=== PATIENT | male | born 1970 | race Two or more races ===

== ENCOUNTER 2020-10-18 10:40 | Inpatient (IN) | payer SELFPAY ==
[~2020-10-18] VITALS: Ht 172.7 cm; Wt 78.4 kg
[2020-10-18] MEDS ORDERED: FAMOTIDINE 20 MG/2 ML VIAL IVP ONE (11:15)
[2020-10-18] MEDS ORDERED: IV NORMAL SALINE 1000ML BAG 1,000 ML IV ONE (11:15)
[2020-10-18] MEDS ORDERED: MORPHINE SULFATE 4 MG/ML VIAL. IV/SQ PRN (11:15)
[2020-10-18] MEDS ORDERED: ONDANSETRON PF 4 MG/2 ML VIAL. IVP ONE (11:15)
[2020-10-18 11:42] LABS: BASO # 0.1 x10^3/uL (0.0-0.2); BASO % 0 % (0-3); EOS % 0 % (0-3); HEMOGLOBIN 16.1 g/dL (13.0-17.5); LYMPH # 0.7 x10^3/uL (1.0-4.8); LYMPH % 3 % (24-48); MEAN CORPUSCULAR HEMOGLOBIN 28 pg (25-35); MEAN CORPUSCULAR HGB CONC 34 g/dL (31-37); MEAN CORPUSCULAR VOLUME 83 fL (79-100); MONO # 1.4 x10^3/uL (0.0-1.1); MONO % 6 % (0-9); NEUT # 22.7 x10^3/uL (1.8-7.7); NEUT % 91 % (31-73); PLATELET COUNT 240 x10^3/uL (140-400); RED BLOOD COUNT 5.68 x10^6/uL (4.30-5.70); RED CELL DISTRIBUTION WIDTH 13.7 % (11.5-14.5); WHITE BLOOD COUNT 24.8 x10^3/uL (4.0-11.0)
[2020-10-18 11:55] LABS: CALCIUM 9.1 mg/dL (8.5-10.1); CREATININE 1.6 mg/dL (0.7-1.3); GFR 45.6; POTASSIUM 4.5 mmol/L (3.5-5.1)
[2020-10-18 11:58] LABS: PROTHROMBIN TIME PATIENT 13.8 SEC (11.7-14.0)
--- NOTE | 2020-10-18 11:59 | RAD ---
EXAM: Chest, single view. HISTORY: Cough. COMPARISON: None. FINDINGS: A frontal view of the chest is obtained. There is diffuse central and lower lobe predominan t interstitial infiltrate. There is no consolidation. There are small pleural effusions. There is no pneumothorax. The heart is normal in size. IMPRESSION: Diffuse central and lower lobe predominant interstitial infiltrate and small pleural effu sions. Electronically signed by: Danna Moody MD (10/18/2020 11:56 AM) [id number]
[2020-10-18] MEDS ORDERED: IOHEXOL 300 MG/ML 100ML VIAL. IV ONE (12:00)
[2020-10-18 12:01] LABS: ALBUMIN 3.8 g/dL (3.4-5.0); ALBUMIN/GLOBULIN RATIO 1.1 (1.0-1.7); MAGNESIUM 1.8 mg/dL (1.8-2.4); TOTAL BILIRUBIN 1.3 mg/dL (0.2-1.0); TOTAL PROTEIN 7.4 g/dL (6.4-8.2)
[2020-10-18] MEDS ORDERED: HEPARIN 25,000UTS/250ML PREMIX 250 ML IV PRN (12:15)
[2020-10-18] MEDS ORDERED: HEPARIN for IV BOLUS 10,000 UNIT/10 ML VIAL. IV PRN (12:15)
[2020-10-18 12:27] LABS: % BANDS 2 % (0-9); % LYMPHS 1 % (24-48); % MONOS 5 % (0-10); % SEGS 92 % (35-66)
[2020-10-18 12:28] LABS: PLT ESTIMATE ADEQUATE (ADEQUATE)
[2020-10-18] MEDS ORDERED: HEPARIN for ARTERIAL LINE 1,500 ML ONE (12:29)
[2020-10-18] MEDS ORDERED: LIDOCAINE 1% Multi-Dose 20 ML VIAL. ONE (12:29)
[2020-10-18] MEDS ORDERED: IODIXANOL 320 MG/ML 100 ML VIAL. ONE ×3 (12:29→14:11)
[2020-10-18] MEDS ORDERED: CONTRAST GIVEN. MC PRN ×2 (12:30→16:00)
[2020-10-18] MEDS ORDERED: HEPARIN for IV BOLUS 10,000 UNIT/10 ML VIAL. IV ONE (12:30)
[2020-10-18] MEDS ORDERED: BIVALIRUDIN 250 MG VIAL. IV ONE ×3 (12:32→15:45)
[2020-10-18] MEDS ORDERED: MIDAZOLAM HCL/PF 2 MG/2 ML VIAL. ONE ×2 (12:32→13:28)
[2020-10-18] MEDS ORDERED: fentaNYL PF VIAL 100 MCG/2 ML VIAL ONE (12:32)
[2020-10-18 12:35] VITALS: BP 110/74
--- NOTE | 2020-10-18 12:50 | PHYS DOC ---
Past Medical History Past Medical History: Diabetes-Type II (LINDA POWERS APRN) Past Surgical History: No Surgical History (LINDA POWERS APRN) Smoking Status: Never Smoker Alcohol Use: None (LINDA POWERS APRN) General Adult EDM: Chief Complaint: SHORTNESS OF BREATH HPI: HPI: Patient is a 50 year old male with history of diabetes type 2 who presents to the ED today complaining of moderate left upper quadrant abdominal pain radiating to the chest, symptoms have been going on and off for 3 days. Patient describes the pain as sharp. Patient states the pain became constant yesterday evening hence the reason he came to the ED today. Patient is also complaining of nausea with no vomiting and SOA. Denies any diarrhea. Reports history of alcohol use but not chronically. Denies any fever. Also complaining of productive cough for 3 days. Patient denies anything exacerbating or relieving his symptoms. Patient is Omani-speaking and interpretation is provided by the sister and the daughter. (LINDA POWERS APRN) Review of Systems: Review of Systems: Constitutional: Denies fever or chills. [] Eyes: Denies change in visual acuity. [] HENT: Denies nasal congestion or sore throat. [] Respiratory: Reports shortness of breath. Denies cough Cardiovascular: Reports left sided chest pain GI: Reports left upper quadrant abdominal pain with nausea, denies vomiting, bloody stools or diarrhea. [] : Denies dysuria. [] Musculoskeletal: Denies back pain or joint pain. [] Integument: Denies rash. [] Neurologic: Denies headache, focal weakness or sensory changes. [] Psychiatric: Denies depression or anxiety. [] (LINDA POWERS APRN) Heart Score: HEART Score for Chest Pain: HEART Score for Chest Pain Response (Comments) Value History Moderately Suspicious [address] Depression 2 Age >45 - < 65 1 Risk Factors 1 or 2 Risk Factors 1 Troponin >3 x Normal Limit 2 Total 7 Risk Factors: Risk Factors: DM, Current or recent (<one month) smoker, HTN, HLP, family history of CAD, obesity. Risk Scores: Score 0 - 3: 2.5% MACE over next 6 weeks - Discharge Home Score 4 - 6: 20.3% MACE over next 6 weeks - Admit for Clinical Observation Score 7 - 10: 72.7% MACE over next 6 weeks - Early Invasive Strategies (LINDA POWERS APRN) Current Medications: Current Medications Medications (Trade) Dose Ordered Sig/Sulaiman Start Time Stop Time Status Last Admin Dose Admin Bivalirudin (Angiomax) 250 mg STK-MED ONCE 10/18/20 12:32 10/18/20 12:32 DC Famotidine (Pepcid Vial) 20 mg 1X ONCE 10/18/20 11:15 10/18/20 11:36 DC 10/18/20 11:47 20 MG Fentanyl Citrate (Fentanyl 2ml Vial) 100 mcg STK-MED ONCE 10/18/20 12:32 10/18/20 12:32 DC Heparin Sodium (Porcine) (Heparin Sodium) 4,000 unit 1X ONCE 10/18/20 12:30 10/18/20 12:31 DC 10/18/20 12:28 4,000 UNIT Heparin Sodium/ Dextrose 250 ml @ 9.4 mls/hr CONT PRN 10/18/20 12:15 Heparin Sodium/ Sodium Chloride 1,500 ml @ As Directed STK-MED ONCE 10/18/20 12:29 10/18/20 12:29 DC Info (CONTRAST GIVEN -- Rx MONITORING) 1 each PRN DAILY PRN 10/18/20 12:30 10/20/20 12:29 Iodixanol (Visipaque 320) 100 ml STK-MED ONCE 10/18/20 12:29 10/18/20 12:29 DC Iohexol (Omnipaque 300 Mg/ml) 60 ml 1X ONCE 10/18/20 12:00 10/18/20 12:02 DC Lidocaine HCl (Lidocaine 1% 20ml Vial) 20 ml STK-MED ONCE 10/18/20 12:29 10/18/20 12:29 DC Midazolam HCl (Versed) 2 mg STK-MED ONCE 10/18/20 12:32 10/18/20 12:32 DC Morphine Sulfate (Morphine Sulfate) 4 mg PRN Q15MIN PRN 10/18/20 11:15 10/19/20 11:14 10/18/20 11:47 4 MG Ondansetron HCl (Zofran) 4 mg 1X ONCE 10/18/20 11:15 10/18/20 11:36 DC 10/18/20 11:47 4 MG Sodium Chloride 1,000 ml @ 1,000 mls/hr 1X ONCE 10/18/20 11:15 10/18/20 12:19 DC 10/18/20 11:48 1,000 MLS/HR (LINDA POWERS BARK PEELER) Allergies: Allergies: Allergies Coded Allergies Type Severity Reaction Last Updated Verified No Known Drug Allergies 10/18/20 No (LINDA POWERS BARK PEELER) Physical Exam: PE: Constitutional: Well developed, well nourished, no acute distress, non-toxic appearance. [] HENT: Normocephalic, atraumatic, bilateral external ears normal, oropharynx moist, no oral exudates, nose normal. [] Eyes: PERRLA, EOMI, conjunctiva normal, no discharge. [] Neck: Normal range of motion, no tenderness, supple, no stridor. [] Cardiovascular:Heart rate regular rhythm, no murmur [] Thumping his left chest during exam. restless, continuously lifting LUE arm up in air for comfort. Lungs & Thorax: Short of breath, diminished breath sounds Abdomen: Bowel sounds normal, soft, no tenderness, no masses, no pulsatile masses. [] Skin: Warm, dry, no erythema, no rash. [] Back: No tenderness, no CVA tenderness. [] Extremities: No tenderness, no cyanosis, no clubbing, ROM intact, no edema. [] Neurologic: Alert and oriented X 3, normal motor function, normal sensory function, no focal deficits noted. [] Psychologic: Affect normal, judgement normal, mood normal. [] (PRIYA,LINDA BARK PEELER) Current Patient Data: Labs: Laboratory Tests Test 10/18/20 11:15 White Blood Count 24.8 x10^3/uL (4.0-11.0) H Red Blood Count 5.68 x10^6/uL (4.30-5.70) Hemoglobin 16.1 g/dL (13.0-17.5) Hematocrit 47.0 % (39.0-53.0) Mean Corpuscular Volume 83 fL (79-100) Mean Corpuscular Hemoglobin 28 pg (25-35) Mean Corpuscular Hemoglobin Concent 34 g/dL (31-37) Red Cell Distribution Width 13.7 % (11.5-14.5) Platelet Count 240 x10^3/uL (140-400) Neutrophils (%) (Auto) 91 % (31-73) H Lymphocytes (%) (Auto) 3 % (24-48) L Monocytes (%) (Auto) 6 % (0-9) Eosinophils (%) (Auto) 0 % (0-3) Basophils (%) (Auto) 0 % (0-3) Neutrophils # (Auto) 22.7 x10^3/uL (1.8-7.7) H Lymphocytes # (Auto) 0.7 x10^3/uL (1.0-4.8) L Monocytes # (Auto) 1.4 x10^3/uL (0.0-1.1) H Eosinophils # (Auto) 0.0 x10^3/uL (0.0-0.7) Basophils # (Auto) 0.1 x10^3/uL (0.0-0.2) Segmented Neutrophils % 92 % (35-66) H Band Neutrophils % 2 % (0-9) Lymphocytes % 1 % (24-48) L Monocytes % 5 % (0-10) Platelet Estimate Adequate (ADEQUATE) Prothrombin Time 13.8 SEC (11.7-14.0) Prothrombin Time INR 1.1 (0.8-1.1) Activated Partial Thromboplast Time 29 SEC (24-38) Sodium Level 131 mmol/L (136-145) L Potassium Level 4.5 mmol/L (3.5-5.1) Chloride Level 95 mmol/L (98-107) L Carbon Dioxide Level 23 mmol/L (21-32) Anion Gap 13 (6-14) Blood Urea Nitrogen 21 mg/dL (8-26) Creatinine 1.6 mg/dL (0.7-1.3) H Estimated GFR (Cockcroft-Gault) 45.6 BUN/Creatinine Ratio 13 (6-20) Glucose Level 282 mg/dL (70-99) H Calcium Level 9.1 mg/dL (8.5-10.1) Magnesium Level 1.8 mg/dL (1.8-2.4) Total Bilirubin 1.3 mg/dL (0.2-1.0) H Aspartate Amino Transferase (AST) 165 U/L (15-37) H Alanine Aminotransferase (ALT) 55 U/L (16-63) Alkaline Phosphatase 77 U/L (46-116) Troponin I Quantitative 10.436 ng/mL (0.000-0.055) DB-Ckp-K-Type Natriuretic Peptide 5767 pg/mL (0-124) H Total Protein 7.4 g/dL (6.4-8.2) Albumin 3.8 g/dL (3.4-5.0) Albumin/Globulin Ratio 1.1 (1.0-1.7) Lipase 48 U/L (73-393) L Thyroid Stimulating Hormone (TSH) 1.026 uIU/mL (0.358-3.74) Ethyl Alcohol Level < 10 mg/dL (0-10) Laboratory Tests 10/18/20 11:15 Laboratory Tests 10/18/20 11:15 Vital Signs: Vital Signs Date Time Temp Pulse Resp B/P (MAP) Pulse Ox O2 Delivery O2 Flow Rate FiO2 10/18/20 11:47 20 92 Nasal Cannula 4.0 10/18/20 11:10 98.0 125 139/82 (101) 98.0 (LINDA POWERS APRN) EKG: EK interpreted by Dr. Mei sinus tachycardia, heart rate 118 ST elevation in V4 [address] Mei and Dr. Terrazas Sinus tachycardia HR 115 ST elevation on V4 (LINDA POWERS APRN) Radiology/Procedures: Radiology/Procedures: []PROCEDURE: PORTABLE CHEST 1V EXAM: Chest, single view. HISTORY: Cough. COMPARISON: None. FINDINGS: A frontal view of the chest is obtained. There is diffuse central and lower lobe predominant interstitial infiltrate. There is no consolidation. There are small pleural effusions. There is no pneumothorax. The heart is normal in size. IMPRESSION: Diffuse central and lower lobe predominant interstitial infiltrate and small pleural effusions. Electronically signed by: Danna Ferrera MD (10/18/2020 11:56 AM) [id number] DICTATED and SIGNED BY: DANNA FERRERA MD DATE: 10/18/20 [id number] (LINDA POWERS APRN) Course & Med Decision Making: Course & Med Decision Making Pertinent Labs and Imaging studies reviewed. (See chart for details) This is a 50-year-old male patient presenting to the ED today complaining of left upper quadrant abdominal pain radiating to the chest with nausea and shortness of breath, symptoms for 3 days. Vitals on arrival to the ED O2 sats 85% on room air, patient was put on 4 L of oxygen, O2 sats came up to 92-93%, heart rate 125, respiration 32, blood pressure 139/82. Patient appears uncomfortable thumping his left chest. EKG noted for ST elevation of V4, troponin 10.436 Chest x-ray noted for bilateral lower lobe interstitial infiltrates suspicious for Covid pneumonia. CBC with a WBC of 24.8, CMP with creatinine of 1.[address] Terrazas was notified. He came and took patient to laboratory specialist Spoke with Dr. Reed who accepted patient for admission. Started on Heparin (LINDA POWERS APRN) Dragon Disclaimer: Dragon Disclaimer: This electronic medical record was generated, in whole or in part, using a voice recognition dictation system. (LINDA POWERS APRN) Departure Departure Impression: Primary Impression: STEMI (ST elevation myocardial infarction) Qualified Codes: I21.3 - ST elevation (STEMI) myocardial infarction of unspecified site Additional Impressions: Person under investigation for COVID-19 LUQ abdominal pain Bilateral pulmonary infiltrates on CXR Respiratory failure Qualified Codes: J96.01 - Acute respiratory failure with hypoxia Disposition: ADMITTED INPT THIS HOSP Condition: STABLE Referrals: NO PCP (PCP) Attending Signature Attending Signature I have reviewed the PA/SAFE AND VAULT MECHANIC's note and plan of care. I was available for consultation as needed during the patient's visit in the emergency department. I agree with the clinical impression, plan, and disposition. (MANDO MEI DO) LINDA POWERS APRN Oct 18, 2020 12:50 MANDO MEI DO Oct 18, 2020 14:53
[2020-10-18] MEDS ORDERED: ONDANSETRON PF 4 MG/2 ML VIAL. IV PRN (13:15)
[2020-10-18] MEDS ORDERED: MORPHINE SULFATE 4 MG/ML VIAL. IV PRN (13:15)
[2020-10-18] MEDS ORDERED: FUROSEMIDE 100 MG/10 ML VIAL. ONE (13:16)
[2020-10-18] MEDS ORDERED: NOREPINEPHRINE VIAL 8 MG in IV DEXTROSE 5% 250 ML IV PRN (13:30)
[2020-10-18] MEDS ORDERED: MIDAZOLAM HCL 50 MG in IV NORMAL SALINE 50ML 50 ML IV ONE (13:30)
[2020-10-18] MEDS ORDERED: FUROSEMIDE 100 MG/10 ML VIAL. IVP ONE (13:30)
[2020-10-18] MEDS ORDERED: MIDAZOLAM 100mg/100ml NS BAG 100 ML IV PRN (13:30)
--- NOTE | 2020-10-18 13:44 | PDOC1 ---
History and Physical Date of Admission Date of Admission DATE: 10/18/20 TIME: 13:33 Identification/Chief Complaint Chief Complaint Abdominal pain Source Source: Chart review, Patient History of Present Illness History of Present Illness Patient is a 50-year-old male who presents to the ER with complaints left upper quadrant abdominal pain for the past 2 days. He reports sharp pain, 10/10, with associated nausea, cough, and shortness of breath. Upon arrival in the ER he was saturating 84% on room air, which improved with 4 L nasal cannula. He denies any aggravating or alleviating symptoms. Labs upon admission in the ER showed WBC 24.8, sodium 131, creatinine 1.6, and troponin 10.436. Cardiology was notified and patient was taken emergently to the Vac[facility]. Will admit patient for further medical management. Past Medical History Past Medical History DM2 Past Surgical History Past Surgical History: No pertinent history Family History Family History Unable to obtain at this time due to emergent procedure Social History Smoke: No ALCOHOL: none Drugs: None Current Problem List Problem List Problems Medical Problems: (1) Bilateral pulmonary infiltrates on CXR Status: Acute (2) LUQ abdominal pain Status: Acute (3) Person under investigation for COVID-19 Status: Acute (4) STEMI (ST elevation myocardial infarction) Status: Acute Current Medications Current Medications Current Medications Morphine Sulfate (Morphine Sulfate) 4 mg PRN Q15MIN PRN IV/SQ PAIN GREATER THAN 3/10 Last administered on 10/18/20at 11:47; Start 10/18/20 at 11:15; Stop 10/19/20 at 11:14 Sodium Chloride 1,000 ml @ 1,000 mls/hr 1X ONCE IV Last administered on 10/18/20at 11:48; Start 10/18/20 at 11:15; Stop 10/18/20 at 12:19; Status DC Ondansetron HCl (Zofran) 4 mg 1X ONCE IVP Last administered on 10/18/20at 11:47; Start 10/18/20 at 11:15; Stop 10/18/20 at 11:36; Status DC Famotidine (Pepcid Vial) 20 mg 1X ONCE IVP Last administered on 10/18/20at 11:47; Start 10/18/20 at 11:15; Stop 10/18/20 at 11:36; Status DC Iohexol (Omnipaque 300 Mg/ml) 60 ml 1X ONCE IV ; Start 10/18/20 at 12:00; Stop 10/18/20 at 12:02; Status DC Heparin Sodium/ Dextrose 250 ml @ 9.4 mls/hr CONT PRN IV PER PROTOCOL; Start 10/18/20 at 12:15 Heparin Sodium (Porcine) (Heparin Sodium) 2,150 unit PRN Q6HRS PRN IV FOR UFH LEVEL LESS THAN 0.2; Start 10/18/20 at 12:15 Info (CONTRAST GIVEN -- Rx MONITORING) 1 each PRN DAILY PRN MC SEE COMMENTS; Start 10/18/20 at 12:30; Stop 10/20/20 at 12:29 Heparin Sodium (Porcine) (Heparin Sodium) 4,000 unit 1X ONCE IV Last administered on 10/18/20at 12:28; Start 10/18/20 at 12:30; Stop 10/18/20 at 12:31; Status DC Iodixanol (Visipaque 320) 100 ml STK-MED ONCE .ROUTE ; Start 10/18/20 at 12:29; Stop 10/18/20 at 12:29; Status DC Lidocaine HCl (Lidocaine 1% 20ml Vial) 20 ml STK-MED ONCE .ROUTE ; Start 10/18/20 at 12:29; Stop 10/18/20 at 12:29; Status DC Heparin Sodium/ Sodium Chloride 1,500 ml @ As Directed STK-MED ONCE .ROUTE ; Start 10/18/20 at 12:29; Stop 10/18/20 at 12:29; Status DC Fentanyl Citrate (Fentanyl 2ml Vial) 100 mcg STK-MED ONCE .ROUTE ; Start 10/18/20 at 12:32; Stop 10/18/20 at 12:32; Status DC Midazolam HCl (Versed) 2 mg STK-MED ONCE .ROUTE ; Start 10/18/20 at 12:32; Stop 10/18/20 at 12:32; Status DC Bivalirudin (Angiomax) 250 mg STK-MED ONCE IV ; Start 10/18/20 at 12:32; Stop 10/18/20 at 12:32; Status DC Ondansetron HCl (Zofran) 4 mg PRN Q8HRS PRN IV NAUSEA/VOMITING; Start 10/18/20 at 13:15; Stop 10/19/20 at 13:14 Morphine Sulfate (Morphine Sulfate) 4 mg PRN Q2HR PRN IV PAIN; Start 10/18/20 at 13:15; Stop 10/19/20 at 13:14 Furosemide (Lasix) 100 mg STK-MED ONCE .ROUTE ; Start 10/18/20 at 13:16; Stop 10/18/20 at 13:17; Status DC Norepinephrine Bitartrate 8 mg/ Dextrose 258 ml @ 0 mls/hr CONT PRN IV PER PROTOCOL; Start 10/18/20 at 13:30 Furosemide (Lasix) 100 mg 1X ONCE IVP ; Start 10/18/20 at 13:30; Stop 10/18/20 at 13:31; Status DC Midazolam HCl (Versed) 2 mg STK-MED ONCE .ROUTE ; Start 10/18/20 at 13:28; Stop 10/18/20 at 13:28; Status DC Midazolam HCl 50 mg/Sodium Chloride 50 ml @ 0 mls/hr 1X ONCE IV ; Start 10/18/20 at 13:30; Stop 10/18/20 at 13:31; Status UNV Midazolam HCl 100 ml @ 0 mls/hr CONT PRN IV SEE PROTOCOL; Start 10/18/20 at 13:30 Allergies Allergies: Coded Allergies: No Known Drug Allergies (Unverified , 10/18/20) ROS Review of System GENERAL: No history of weight change, weakness or fevers. SKIN: No bruising, hair changes or rashes. EYES: No blurred, double or loss of vision. NOSE AND THROAT: No history of nosebleeds, hoarseness or sore throat. HEART: Denies chest pain, denies palpitations. LUNGS: Cough, shortness of breath.. GASTROINTESTINAL: Abdominal pain and nausea. GENITOURINARY: Denies dysuria, frequency, urgency, hematuria. NEUROLOGIC: Denies history of numbness, tingling, tremor or weakness. PSYCHIATRIC: Denies anxiety, denies depression. ENDOCRINE: No history of heat or cold intolerance, polyuria or polydipsia. EXTREMITIES: Denies muscle weakness, joint pain, pain on walking or stiffness. Physical Exam Physical Exam General: Alert, Oriented X3, Cooperative, moderate distress HEENT: PERRLA, EOMI Lungs: Clear to auscultation, Normal air movement Heart: Tachycardic, no murmurs Cardiovascular: S1, S2 Abdomen: Normal bowel sounds, Soft, No tenderness Extremities: No clubbing, No cyanosis Skin: No rashes, No significant lesion Neuro: Normal speech, Normal tone, Sensation intact Psych/Mental Status: Mental status NL, Mood NL Vitals Vitals Vital Signs Date Time Temp Pulse Resp B/P (MAP) Pulse Ox O2 Delivery O2 Flow Rate FiO2 10/18/20 12:35 116 110/74 (86) 89 Nasal Cannula 6.0 10/18/20 11:47 20 10/18/20 11:10 98.0 98.0 Labs Labs Laboratory Tests Test 10/18/20 11:15 10/18/20 12:13 White Blood Count 24.8 x10^3/uL (4.0-11.0) Red Blood Count 5.68 x10^6/uL (4.30-5.70) Hemoglobin 16.1 g/dL (13.0-17.5) Hematocrit 47.0 % (39.0-53.0) Mean Corpuscular Volume 83 fL (79-100) Mean Corpuscular Hemoglobin 28 pg (25-35) Mean Corpuscular Hemoglobin Concent 34 g/dL (31-37) Red Cell Distribution Width 13.7 % (11.5-14.5) Platelet Count 240 x10^3/uL (140-400) Neutrophils (%) (Auto) 91 % (31-73) Lymphocytes (%) (Auto) 3 % (24-48) Monocytes (%) (Auto) 6 % (0-9) Eosinophils (%) (Auto) 0 % (0-3) Basophils (%) (Auto) 0 % (0-3) Neutrophils # (Auto) 22.7 x10^3/uL (1.8-7.7) Lymphocytes # (Auto) 0.7 x10^3/uL (1.0-4.8) Monocytes # (Auto) 1.4 x10^3/uL (0.0-1.1) Eosinophils # (Auto) 0.0 x10^3/uL (0.0-0.7) Basophils # (Auto) 0.1 x10^3/uL (0.0-0.2) Segmented Neutrophils % 92 % (35-66) Band Neutrophils % 2 % (0-9) Lymphocytes % 1 % (24-48) Monocytes % 5 % (0-10) Platelet Estimate Adequate (ADEQUATE) Prothrombin Time 13.8 SEC (11.7-14.0) Prothromb Time International Ratio 1.1 (0.8-1.1) Activated Partial Thromboplast Time 29 SEC (24-38) Sodium Level 131 mmol/L (136-145) Potassium Level 4.5 mmol/L (3.5-5.1) Chloride Level 95 mmol/L (98-107) Carbon Dioxide Level 23 mmol/L (21-32) Anion Gap 13 (6-14) Blood Urea Nitrogen 21 mg/dL (8-26) Creatinine 1.6 mg/dL (0.7-1.3) Estimated GFR (Cockcroft-Gault) 45.6 BUN/Creatinine Ratio 13 (6-20) Glucose Level 282 mg/dL (70-99) Calcium Level 9.1 mg/dL (8.5-10.1) Magnesium Level 1.8 mg/dL (1.8-2.4) Total Bilirubin 1.3 mg/dL (0.2-1.0) Aspartate Amino Transf (AST/SGOT) 165 U/L (15-37) Alanine Aminotransferase (ALT/SGPT) 55 U/L (16-63) Alkaline Phosphatase 77 U/L (46-116) Troponin I Quantitative 10.436 ng/mL (0.000-0.055) OI-Nsp-K-Type Natriuretic Peptide 5767 pg/mL (0-124) Total Protein 7.4 g/dL (6.4-8.2) Albumin 3.8 g/dL (3.4-5.0) Albumin/Globulin Ratio 1.1 (1.0-1.7) Lipase 48 U/L (73-393) Thyroid Stimulating Hormone (TSH) 1.026 uIU/mL (0.358-3.74) Ethyl Alcohol Level < 10 mg/dL (0-10) SARS-CoV-2 Antigen (Rapid) Negative (NEGATIVE) Laboratory Tests Test 10/18/20 11:15 10/18/20 12:13 White Blood Count 24.8 x10^3/uL (4.0-11.0) Red Blood Count 5.68 x10^6/uL (4.30-5.70) Hemoglobin 16.1 g/dL (13.0-17.5) Hematocrit 47.0 % (39.0-53.0) Mean Corpuscular Volume 83 fL (79-100) Mean Corpuscular Hemoglobin 28 pg (25-35) Mean Corpuscular Hemoglobin Concent 34 g/dL (31-37) Red Cell Distribution Width 13.7 % (11.5-14.5) Platelet Count 240 x10^3/uL (140-400) Neutrophils (%) (Auto) 91 % (31-73) Lymphocytes (%) (Auto) 3 % (24-48) Monocytes (%) (Auto) 6 % (0-9) Eosinophils (%) (Auto) 0 % (0-3) Basophils (%) (Auto) 0 % (0-3) Neutrophils # (Auto) 22.7 x10^3/uL (1.8-7.7) Lymphocytes # (Auto) 0.7 x10^3/uL (1.0-4.8) Monocytes # (Auto) 1.4 x10^3/uL (0.0-1.1) Eosinophils # (Auto) 0.0 x10^3/uL (0.0-0.7) Basophils # (Auto) 0.1 x10^3/uL (0.0-0.2) Segmented Neutrophils % 92 % (35-66) Band Neutrophils % 2 % (0-9) Lymphocytes % 1 % (24-48) Monocytes % 5 % (0-10) Platelet Estimate Adequate (ADEQUATE) Prothrombin Time 13.8 SEC (11.7-14.0) Prothromb Time International Ratio 1.1 (0.8-1.1) Activated Partial Thromboplast Time 29 SEC (24-38) Sodium Level 131 mmol/L (136-145) Potassium Level 4.5 mmol/L (3.5-5.1) Chloride Level 95 mmol/L (98-107) Carbon Dioxide Level 23 mmol/L (21-32) Anion Gap 13 (6-14) Blood Urea Nitrogen 21 mg/dL (8-26) Creatinine 1.6 mg/dL (0.7-1.3) Estimated GFR (Cockcroft-Gault) 45.6 BUN/Creatinine Ratio 13 (6-20) Glucose Level 282 mg/dL (70-99) Calcium Level 9.1 mg/dL (8.5-10.1) Magnesium Level 1.8 mg/dL (1.8-2.4) Total Bilirubin 1.3 mg/dL (0.2-1.0) Aspartate Amino Transf (AST/SGOT) 165 U/L (15-37) Alanine Aminotransferase (ALT/SGPT) 55 U/L (16-63) Alkaline Phosphatase 77 U/L (46-116) Troponin I Quantitative 10.436 ng/mL (0.000-0.055) DS-Nws-A-Type Natriuretic Peptide 5767 pg/mL (0-124) Total Protein 7.4 g/dL (6.4-8.2) Albumin 3.8 g/dL (3.4-5.0) Albumin/Globulin Ratio 1.1 (1.0-1.7) Lipase 48 U/L (73-393) Thyroid Stimulating Hormone (TSH) 1.026 uIU/mL (0.358-3.74) Ethyl Alcohol Level < 10 mg/dL (0-10) SARS-CoV-2 Antigen (Rapid) Negative (NEGATIVE) Images Images EXAM: Chest, single view. HISTORY: Cough. COMPARISON: None. FINDINGS: A frontal view of the chest is obtained. There is diffuse central and lower lobe predominant interstitial infiltrate. There is no consolidation. There are small pleural effusions. There is no pneumothorax. The heart is normal in size. IMPRESSION: Diffuse central and lower lobe predominant interstitial infiltrate and small pleural effusions. 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 Rapid COVID-19 was negative. Chest x-ray showing lower lobe predominant interstitial infiltrates, concerning for pneumonia. Will cover for community-acquired pneumonia with Rocephin and doxycycline COVID-19 PCR pending; will initiate steroids and possibly remdesivir if COVID-19 positive IV normal saline FEN - Cardiac diet PPX - Heparin FULL CODE Dispo - inpatient for above Justifications for Admission Other Justification JOHNNIE UNGER MD Oct 18, 2020 13:44
[2020-10-18] MEDS ORDERED: cefTRIAXone IV Push 1 GM VIAL. IVP SCH (14:00)
[2020-10-18] MEDS ORDERED: MAGNESIUM HYDROXIDE 2,400 MG/30 ML ORAL.SUSP. PO PRN (14:00)
[2020-10-18] MEDS ORDERED: MAG HYDROX/ALUMINUM HYD/SIMETH 30 ML ORAL.SUSP PO PRN (14:00)
[2020-10-18] MEDS ORDERED: ACETAMINOPHEN 325 MG TABLET. PO PRN (14:00)
[2020-10-18] MEDS ORDERED: DEXTROSE 50% 25 GM / 50ML DISP.SYRIN. IV PRN (14:00)
[2020-10-18] MEDS ORDERED: ZOLPIDEM 5 MG TABLET. PO PRN (14:00)
[2020-10-18] MEDS ORDERED: BISACODYL 10 MG SUPP.RECT. PR PRN (14:00)
[2020-10-18] MEDS ORDERED: ONDANSETRON PF 4 MG/2 ML VIAL. IVP PRN (14:00)
[2020-10-18] MEDS ORDERED: MORPHINE SULFATE 2 MG/ML VIAL. IV PRN (14:00)
[2020-10-18] MEDS ORDERED: DOXYCYCLINE HYCLATE 100 MG TABLET PO SCH (14:00)
[2020-10-18] MEDS ORDERED: CALCIUM CARBONATE 500 MG TAB.CHEW PO PRN (14:00)
[2020-10-18] MEDS ORDERED: HEPARIN for SUB-Q USE 5,000 UNIT/ML VIAL. SQ SCH (14:00)
[2020-10-18] MEDS ORDERED: CALCIUM CHLORIDE 1,000 MG/10 ML DISP.SYRIN ONE (14:41)
[2020-10-18] MEDS ORDERED: EPINEPHrine SYRINGE 1 MG/10 ML SYRINGE ONE (14:41)
[2020-10-18] MEDS ORDERED: ATROPINE 0.5 MG/5 ML DISP.SYRINGE. ONE (14:41)
[2020-10-18] MEDS ORDERED: SUCCINYLCHOLINE 200 MG/10 ML VIAL. ONE (15:00)
[2020-10-18] MEDS ORDERED: ETOMIDATE 20 MG/10 ML VIAL. IV ONE (15:00)
--- NOTE | 2020-10-18 15:42 | NUR ---
Patient transported to [facility]ification [facility] from ED. On 6L NC, alert. Polish speaking. SR, VS stable. Complaints of chest pain. Upon positioning patient on table, using wedge and pillow behind him, patient became increasingly anxious. 15L NRB applied, no improvement. SpO2 <90%. Increased anxiety and amount of sputum, coughing at this time. Patient would not remain still on table. Anesthesia and RT called. Patient intubated by Dr. Wilcox. Sedated w/ Versed gtt and ventilator applied. ACC 22, 500, 8, 100%. Patient suctioned multiple times. Red, frothy sputum present. Peak pressures >35 on ventilator. At this time, Levophed and Dopamine gtt's started per MD order. See [facility] for rates/doses. Dr. Terrazas able to place one coronary stent. Patient then coded. CPR initiated. Code Blue called overhead. See Code Blue Sheet. Patient pronounced at 1508. Family notified. Taken to ICU. See [facility] documentation.
[2020-10-18] MEDS ORDERED: fentaNYL PF VIAL 100 MCG/2 ML VIAL IV ONE (15:45)
[2020-10-18] MEDS ORDERED: FUROSEMIDE 40 MG/4 ML VIAL. IVP ONE (15:45)
[2020-10-18] MEDS ORDERED: IODIXANOL 320 MG/ML 100 ML VIAL. IART ONE (15:45)
[2020-10-18] MEDS ORDERED: MIDAZOLAM HCL/PF 2 MG/2 ML VIAL. IV ONE (15:45)
[2020-10-18] MEDS ORDERED: LIDOCAINE 1% Multi-Dose 20 ML VIAL. INJ ONE (15:45)
[2020-10-18] MEDS ORDERED: INSULIN LISPRO 300 UNITS/3 ML VIAL. SQ SCH (17:00)
--- NOTE | 2020-10-18 17:02 | PDOC3 ---
Discharge Summary Visit Information Date of Admission: Oct 17, 2020 Date of Discharge: Oct 18, 2020 Final Diagnosis Problems Medical Problems: (1) Bilateral pulmonary infiltrates on CXR Status: Acute (2) LUQ abdominal pain Status: Acute (3) Person under investigation for COVID-19 Status: Acute (4) Respiratory failure Status: Acute (5) STEMI (ST elevation myocardial infarction) Status: Acute Brief Hospital Course Allergies Allergies Coded Allergies Type Severity Reaction Last Updated Verified No Known Drug Allergies 10/18/20 No Vital Signs Vital Signs Date Time Temp Pulse Resp B/P (MAP) Pulse Ox O2 Delivery O2 Flow Rate FiO2 10/18/20 13:18 Ventilator 10/18/20 13:15 88 10/18/20 12:35 116 110/74 (86) 6.0 10/18/20 11:47 20 10/18/20 11:10 98.0 98.0 Lab Results Laboratory Tests Test 10/18/20 11:15 10/18/20 12:13 White Blood Count 24.8 x10^3/uL (4.0-11.0) Red Blood Count 5.68 x10^6/uL (4.30-5.70) Hemoglobin 16.1 g/dL (13.0-17.5) Hematocrit 47.0 % (39.0-53.0) Mean Corpuscular Volume 83 fL (79-100) Mean Corpuscular Hemoglobin 28 pg (25-35) Mean Corpuscular Hemoglobin Concent 34 g/dL (31-37) Red Cell Distribution Width 13.7 % (11.5-14.5) Platelet Count 240 x10^3/uL (140-400) Neutrophils (%) (Auto) 91 % (31-73) Lymphocytes (%) (Auto) 3 % (24-48) Monocytes (%) (Auto) 6 % (0-9) Eosinophils (%) (Auto) 0 % (0-3) Basophils (%) (Auto) 0 % (0-3) Neutrophils # (Auto) 22.7 x10^3/uL (1.8-7.7) Lymphocytes # (Auto) 0.7 x10^3/uL (1.0-4.8) Monocytes # (Auto) 1.4 x10^3/uL (0.0-1.1) Eosinophils # (Auto) 0.0 x10^3/uL (0.0-0.7) Basophils # (Auto) 0.1 x10^3/uL (0.0-0.2) Segmented Neutrophils % 92 % (35-66) Band Neutrophils % 2 % (0-9) Lymphocytes % 1 % (24-48) Monocytes % 5 % (0-10) Platelet Estimate Adequate (ADEQUATE) Prothrombin Time 13.8 SEC (11.7-14.0) Prothromb Time International Ratio 1.1 (0.8-1.1) Activated Partial Thromboplast Time 29 SEC (24-38) Sodium Level 131 mmol/L (136-145) Potassium Level 4.5 mmol/L (3.5-5.1) Chloride Level 95 mmol/L (98-107) Carbon Dioxide Level 23 mmol/L (21-32) Anion Gap 13 (6-14) Blood Urea Nitrogen 21 mg/dL (8-26) Creatinine 1.6 mg/dL (0.7-1.3) Estimated GFR (Cockcroft-Gault) 45.6 BUN/Creatinine Ratio 13 (6-20) Glucose Level 282 mg/dL (70-99) Calcium Level 9.1 mg/dL (8.5-10.1) Magnesium Level 1.8 mg/dL (1.8-2.4) Total Bilirubin 1.3 mg/dL (0.2-1.0) Aspartate Amino Transf (AST/SGOT) 165 U/L (15-37) Alanine Aminotransferase (ALT/SGPT) 55 U/L (16-63) Alkaline Phosphatase 77 U/L (46-116) Troponin I Quantitative 10.436 ng/mL (0.000-0.055) CJ-Ibf-T-Type Natriuretic Peptide 5767 pg/mL (0-124) Total Protein 7.4 g/dL (6.4-8.2) Albumin 3.8 g/dL (3.4-5.0) Albumin/Globulin Ratio 1.1 (1.0-1.7) Lipase 48 U/L (73-393) Thyroid Stimulating Hormone (TSH) 1.026 uIU/mL (0.358-3.74) Ethyl Alcohol Level < 10 mg/dL (0-10) SARS-CoV-2 Antigen (Rapid) Negative (NEGATIVE) Laboratory Tests Test 10/18/20 11:15 10/18/20 12:13 White Blood Count 24.8 x10^3/uL (4.0-11.0) Red Blood Count 5.68 x10^6/uL (4.30-5.70) Hemoglobin 16.1 g/dL (13.0-17.5) Hematocrit 47.0 % (39.0-53.0) Mean Corpuscular Volume 83 fL (79-100) Mean Corpuscular Hemoglobin 28 pg (25-35) Mean Corpuscular Hemoglobin Concent 34 g/dL (31-37) Red Cell Distribution Width 13.7 % (11.5-14.5) Platelet Count 240 x10^3/uL (140-400) Neutrophils (%) (Auto) 91 % (31-73) Lymphocytes (%) (Auto) 3 % (24-48) Monocytes (%) (Auto) 6 % (0-9) Eosinophils (%) (Auto) 0 % (0-3) Basophils (%) (Auto) 0 % (0-3) Neutrophils # (Auto) 22.7 x10^3/uL (1.8-7.7) Lymphocytes # (Auto) 0.7 x10^3/uL (1.0-4.8) Monocytes # (Auto) 1.4 x10^3/uL (0.0-1.1) Eosinophils # (Auto) 0.0 x10^3/uL (0.0-0.7) Basophils # (Auto) 0.1 x10^3/uL (0.0-0.2) Segmented Neutrophils % 92 % (35-66) Band Neutrophils % 2 % (0-9) Lymphocytes % 1 % (24-48) Monocytes % 5 % (0-10) Platelet Estimate Adequate (ADEQUATE) Prothrombin Time 13.8 SEC (11.7-14.0) Prothromb Time International Ratio 1.1 (0.8-1.1) Activated Partial Thromboplast Time 29 SEC (24-38) Sodium Level 131 mmol/L (136-145) Potassium Level 4.5 mmol/L (3.5-5.1) Chloride Level 95 mmol/L (98-107) Carbon Dioxide Level 23 mmol/L (21-32) Anion Gap 13 (6-14) Blood Urea Nitrogen 21 mg/dL (8-26) Creatinine 1.6 mg/dL (0.7-1.3) Estimated GFR (Cockcroft-Gault) 45.6 BUN/Creatinine Ratio 13 (6-20) Glucose Level 282 mg/dL (70-99) Calcium Level 9.1 mg/dL (8.5-10.1) Magnesium Level 1.8 mg/dL (1.8-2.4) Total Bilirubin 1.3 mg/dL (0.2-1.0) Aspartate Amino Transf (AST/SGOT) 165 U/L (15-37) Alanine Aminotransferase (ALT/SGPT) 55 U/L (16-63) Alkaline Phosphatase 77 U/L (46-116) Troponin I Quantitative 10.436 ng/mL (0.000-0.055) UO-Hvd-Q-Type Natriuretic Peptide 5767 pg/mL (0-124) Total Protein 7.4 g/dL (6.4-8.2) Albumin 3.8 g/dL (3.4-5.0) Albumin/Globulin Ratio 1.1 (1.0-1.7) Lipase 48 U/L (73-393) Thyroid Stimulating Hormone (TSH) 1.026 uIU/mL (0.358-3.74) Ethyl Alcohol Level < 10 mg/dL (0-10) SARS-CoV-2 Antigen (Rapid) Negative (NEGATIVE) Brief Hospital Course Mr. Shannon is a 50 old male who presented with STEMI. He was taken to the [facility] emergently, but unfortunately patient coded in the [facility]. He was intubated and admitted to the ICU. However patient shortly after being admitted to ICU. Discharge Information Condition at Discharge: / Disposition/Orders: Justicifation of Admission Dx: Justifications for Admission: Justification of Admission Dx: Yes IA: Acute STEMI JOHNNIE UNGER MD Oct 18, 2020 17:02
--- NOTE | 2020-10-18 17:29 | EKG ---
[facility] [address] [place] [address] Test Date: 2020-10-18 Test Time: 11:15:08 Pat Name: TATE PATHAK Department: Room: Gender: M Hearing Care Practitioner: : 1970 Requested By: LINDA POWERS Order Number: [id number] Reading MD: Measurements Intervals [place] Rate: 118 P: 26 RI: 150 QRS: 33 QRSD: 84 T: 116 QT: 288 QTc: 406 Interpretive Statements SINUS TACHYCARDIA QRS(T) CONTOUR ABNORMALITY CONSIDER ANTEROSEPTAL MYOCARDIAL DAMAGE ST & T ABNORMALITY, CONSIDER RECENT ANTERIOR MYOCARDIAL OR PERICARDIAL DAMAGE ABNORMAL ECG RI6.01 No previous ECG available for comparison
--- NOTE | 2020-10-18 18:25 | NUR ---
patient brought to ICU for family viewing past dying at 1508 in [facility],Father came and was at bedside with family, Dr. Greer called did not want autopsy,family declined autopsy. patient from [place] need to make arrangement ,will call for home. will send patient to [facility] when family done.
--- NOTE | 2020-10-18 19:37 | CARD ---
MR#: [id number] Date of Study: 10/18/2020 Ordering Physician: VERONA GREER, Referring Physician: VERONA GREER, Tech: Jerome Malloy, RT (R) APPROVED REPORT Procedures Selective coronary angiogram Bare-metal stent placement to the LAD Intubation of the patient prior to the procedure The patient was a 50-year-old male who presented to the emergency room with episodes of lower chest a nd upper epigastric discomfort. The patient spoke Khmer but an ethnoarchaeology professor was present. He had an episode of peak chest pain approximately 14 hours prior to arrival in the emergency room. His EKG s howed anterior ST elevation. His troponin was increased to approximately 10. In this setting we rec ommended an emergency heart catheterization. Risks and benefits were discussed. The patient gave in formed consent to proceed. The patient was brought emergently to the cardiac catheterization lab. Once on the catheterization t able the patient became severely short of breath. This progressed to the point that we required an e mergency intubation performed by the anesthesiology service. This was performed without complication s the patient was placed on a ventilator. Of note the patient had copious secretions and fluid in hi s ET tube and needed almost constant suctioning. Following this the area the right femoral vein and artery prepared in the usual manner with Betadine, sterile draping and local anesthetic. An 18-gauge needle was used to enter the right femoral artery, a wire placed and a 6 [place] sheath placed over t he wire. The same needle was then used to engage the right femoral vein, a wire placed and a 5 Frenc h sheath placed into the right femoral vein. This was secured and attached to an IV fluid drip. A W ElationEMR right 6 [place] diagnostic catheter was advanced to the ascending aorta over a J-wire. It was used to engage the right coronary artery and sequential injections in various views were obtained. In the same manner a 6 [place] XB 3.5 left guide was used to engage the left system and sequential inj ections of various views were obtained. Upon reviewing the images the patient had diffuse three-vess el coronary artery disease. The right coronary artery was a moderately small vessel with a subtotal mid occlusion with mild collateralization of the left system. The left circumflex had a subtotal les ion in a moderate size obtuse marginal vessel with diffuse small vessel disease. The LAD had diffuse mid disease in the greater than 95% range. After reviewing the images we proceeded to intervene on the LAD system. Angiomax as per protocol was administered. A PT choice wire was used to cross the lesion. The wire first tracted into a diagonal branch but then was repositioned into the distal LAD. Initially a 2.5 x 16 balloon was used for 4 inflations in the mid region with a maximum pressure of 8 emile and a maxim um time of 20 seconds. Following this a 2.5 x 18 bare-metal stent was placed in the mid to distal le adam with the anticipation to place a mildly larger overlapping stent in the more proximal area of th e vessel. The stent was deployed with 1 inflation at 15 emile for 15 seconds. As the stent balloon wa s being removed in the Guide to prepared to place a second stent, the patient began to desaturate and then drop his blood pressure. He then went into a cardiac arrest. CPR was immediately started. [facility] protocols were followed. The patient required continuing and increasing suctioning through his ET tube with a total suction volume of greater than 700 mils. At approximately 20 minutes into his co de he regained a sinus rhythm for approximately 3 minutes. We then were preparing to reimage his ves sels and possibly place a second stent. However within 3 minutes he resumed pulseless electrical act ivity and CPR was resumed. Also at approximately 15 minutes into his code he had an episode of VT wh ich was successfully treated with a cardioversion. The patient's [facility] starting with the emergency intubation and throughout the course of the case she was informed of the situation. At approximately 25 minutes into CPR I broke scrub and went to the waiting area to discuss it with the patient's sister before I returned to the lab. We continued CPR for a total of >35 minutes. We were not able to regain a pulse or blood pressure. The patient's pupils were fixed and dilated. I halted resuscitation efforts. Following this I went to the waiting area discuss it w ith the patient's family. Coronaries Left main. Left main was a moderate size vessel with no significant lesions. Left anterior descending. The LAD was a moderate size vessel. It had diffuse mid disease in the gre ater than 95% range. It had diffuse disease throughout the distal vessels. Left circumflex. The left circumflex was a moderate size vessel. It had a subtotal occlusion of a m oderate size OM branch. It also had diffuse small vessel disease. Right coronary artery. The right coronary was a moderately small vessel. It has subtotal mid occlus ion. It had diffuse small vessel disease. There was mild collateralization from the left system. <Conclusion> Late presentation of a myocardial infarction approximately 14 hours post most severe chest pain. Emergency intubation secondary to acute respiratory failure thought to be secondary to heart failure when brought to the heart catheterization lab. Three-vessel coronary disease as noted above. Balloon and stent placement to the mid LAD lesion of greater than 95%. Cardiac arrest. Prolonged CPR as above. [place] time. 13.4 min. Dose. 66 Gymc2 Contrast. 299 Visi Moderate sedation. 114 min. Signed by : Verona Greer MD Electronically Approved : 10/18/2020 19:36:50
--- NOTE | 2020-10-18 19:53 | PDOC2 ---
CONSULT Date of Consult Date of Consult DATE: 10/18/20 TIME: 19:46 Reason for Consult Reason for Consult: Myocardial infarction Referring Physician Referring Physician: Dr. Reed Identification/Chief Complaint Chief Complaint Upper abdominal and chest pain. Source Source: Chart review, Patient History of Present Illness Reason for Visit: The patient is a pleasant 50-year-old male visiting from [place] who has developed episodes of upper abdominal and lower chest pain over the past 3 days. 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 His most severe pain was last night approximately 10 PM. He came to the emergency room for persistent pain as noted above. He has a history of diabetes mellitus. There is no reported history of coronary disease congestive heart failure or cardiac arrhythmias. The patient is a non-smoker. Initial chest x-ray showed diffuse central and lower lobe infiltrates and small pleural effusions. His EKG showed ST elevation in the anterior leads although no reciprocal depression. Troponin was elevated at 10.4 creatinine of 1.6 and WBCs at 24.8. Past Medical History Endocrine: Diabetes Past Surgical History Past Surgical History: No pertinent history Family History Family History: Diabetes Social History No ALCOHOL: none Drugs: None Current Problem List Problem List Problems Medical Problems: (1) Bilateral pulmonary infiltrates on CXR Status: Acute (2) LUQ abdominal pain Status: Acute (3) Person under investigation for COVID-19 Status: Acute (4) Respiratory failure Status: Acute (5) STEMI (ST elevation myocardial infarction) Status: Acute Current Medications Current Medications Current Medications Morphine Sulfate (Morphine Sulfate) 4 mg PRN Q15MIN PRN IV/SQ PAIN GREATER THAN 3/10 Last administered on 10/18/20at 11:47; Start 10/18/20 at 11:15; Stop 10/19/20 at 11:14 Sodium Chloride 1,000 ml @ 1,000 mls/hr 1X ONCE IV Last administered on 10/18/20at 11:48; Start 10/18/20 at 11:15; Stop 10/18/20 at 12:19; Status DC Ondansetron HCl (Zofran) 4 mg 1X ONCE IVP Last administered on 10/18/20at 11:47; Start 10/18/20 at 11:15; Stop 10/18/20 at 11:36; Status DC Famotidine (Pepcid Vial) 20 mg 1X ONCE IVP Last administered on 10/18/20at 11:47; Start 10/18/20 at 11:15; Stop 10/18/20 at 11:36; Status DC Iohexol (Omnipaque 300 Mg/ml) 60 ml 1X ONCE IV ; Start 10/18/20 at 12:00; Stop 10/18/20 at 12:02; Status DC Heparin Sodium/ Dextrose 250 ml @ 9.4 mls/hr CONT PRN IV PER PROTOCOL; Start 10/18/20 at 12:15 Heparin Sodium (Porcine) (Heparin Sodium) 2,150 unit PRN Q6HRS PRN IV FOR UFH LEVEL LESS THAN 0.2; Start 10/18/20 at 12:15 Info (CONTRAST GIVEN -- Rx MONITORING) 1 each PRN DAILY PRN MC SEE COMMENTS; Start 10/18/20 at 12:30; Stop 10/20/20 at 12:29 Heparin Sodium (Porcine) (Heparin Sodium) 4,000 unit 1X ONCE IV Last administered on 10/18/20at 12:28; Start 10/18/20 at 12:30; Stop 10/18/20 at 12:31; Status DC Iodixanol (Visipaque 320) 100 ml STK-MED ONCE .ROUTE ; Start 10/18/20 at 12:29; Stop 10/18/20 at 12:29; Status DC Lidocaine HCl (Lidocaine 1% 20ml Vial) 20 ml STK-MED ONCE .ROUTE ; Start 10/18/20 at 12:29; Stop 10/18/20 at 12:29; Status DC Heparin Sodium/ Sodium Chloride 1,500 ml @ As Directed STK-MED ONCE .ROUTE ; Start 10/18/20 at 12:29; Stop 10/18/20 at 12:29; Status DC Fentanyl Citrate (Fentanyl 2ml Vial) 100 mcg STK-MED ONCE .ROUTE ; Start 10/18/20 at 12:32; Stop 10/18/20 at 12:32; Status DC Midazolam HCl (Versed) 2 mg STK-MED ONCE .ROUTE ; Start 10/18/20 at 12:32; Stop 10/18/20 at 12:32; Status DC Bivalirudin (Angiomax) 250 mg STK-MED ONCE IV ; Start 10/18/20 at 12:32; Stop 10/18/20 at 12:32; Status DC Ondansetron HCl (Zofran) 4 mg PRN Q8HRS PRN IV NAUSEA/VOMITING; Start 10/18/20 at 13:15; Stop 10/19/20 at 13:14 Morphine Sulfate (Morphine Sulfate) 4 mg PRN Q2HR PRN IV PAIN; Start 10/18/20 at 13:15; Stop 10/19/20 at 13:14 Furosemide (Lasix) 100 mg STK-MED ONCE .ROUTE ; Start 10/18/20 at 13:16; Stop 10/18/20 at 13:17; Status DC Norepinephrine Bitartrate 8 mg/ Dextrose 258 ml @ 0 mls/hr CONT PRN IV PER PROTOCOL Last administered on 10/18/20at 13:45; Start 10/18/20 at 13:30; Stop 10/18/20 at 15:36; Status DC Furosemide (Lasix) 100 mg 1X ONCE IVP Last administered on 10/18/20at 13:30; Start 10/18/20 at 13:30; Stop 10/18/20 at 13:31; Status DC Midazolam HCl (Versed) 2 mg STK-MED ONCE .ROUTE ; Start 10/18/20 at 13:28; Stop 10/18/20 at 13:28; Status DC Midazolam HCl 50 mg/Sodium Chloride 50 ml @ 0 mls/hr 1X ONCE IV ; Start 10/18/20 at 13:30; Stop 10/18/20 at 13:31; Status UNV Midazolam HCl 100 ml @ 0 mls/hr CONT PRN IV SEE PROTOCOL Last administered on 10/18/20at 15:58; Start 10/18/20 at 13:30 Dopamine HCl/ Dextrose 250 ml @ As Directed STK-MED ONCE IV ; Start 10/18/20 at 13:44; Stop 10/18/20 at 13:44; Status DC Iodixanol (Visipaque 320) 100 ml STK-MED ONCE .ROUTE ; Start 10/18/20 at 13:47; Stop 10/18/20 at 13:47; Status DC Ceftriaxone Sodium (Rocephin) 1 gm Q24H IVP ; Start 10/18/20 at 14:00; Stop 10/22/20 at 14:01 Doxycycline Hyclate (Vibra-Tab) 100 mg BID PO ; Start 10/18/20 at 14:00; Stop 10/23/20 at 13:59 Insulin Glargine (Lantus Syringe) 10 unit QHS SQ ; Start 10/18/20 at 21:00 Insulin Human Lispro (HumaLOG) 0-7 UNITS TIDWMEALS SQ ; Start 10/18/20 at 17:00 Dextrose (Dextrose 50%-Water Syringe) 12.5 gm PRN Q15MIN PRN IV SEE COMMENTS; Start 10/18/20 at 14:00 Ondansetron HCl (Zofran) 4 mg PRN Q6HRS PRN IVP NAUSEA/VOMITING; Start 10/18/20 at 14:00 Al Hydroxide/Mg Hydroxide (Mylanta Plus Xs) 30 ml PRN Q3HRS PRN PO HEARTBURN / GAS; Start 10/18/20 at 14:00 Calcium Carbonate/ Glycine (Tums) 500 mg PRN Q3HRS PRN PO UPSET STOMACH; Start 10/18/20 at 14:00 Zolpidem Tartrate (Ambien) 5 mg PRN QHS PRN PO INSOMNIA, MAY REPEAT IN 1HR; Start 10/18/20 at 14:00 Morphine Sulfate (Morphine Sulfate) 2 mg PRN Q1HR PRN IV PAIN; Start 10/18/20 at 14:00 Acetaminophen (Tylenol) 650 mg PRN Q6HRS PRN PO Headaches, Temp > 101.5F; Start 10/18/20 at 14:00 Magnesium Hydroxide (Milk Of Magnesia) 2,400 mg PRN Q12HR PRN PO CONSTIPATION; Start 10/18/20 at 14:00 Bisacodyl (Dulcolax Supp) 10 mg PRN DAILY PRN IN CONSTIPATION; Start 10/18/20 at 14:00 Heparin Sodium (Porcine) (Heparin Sodium) 5,000 unit Q8HRS SQ ; Start 10/18/20 at 14:00 Bivalirudin (Angiomax) 250 mg STK-MED ONCE IV ; Start 10/18/20 at 14:09; Stop 10/18/20 at 14:09; Status DC Iodixanol (Visipaque 320) 100 ml STK-MED ONCE .ROUTE ; Start 10/18/20 at 14:11; Stop 10/18/20 at 14:11; Status DC Heparin Sodium/ Sodium Chloride (HEPARIN for ARTERIAL LINE FLUSH) 1,000 unit 1X ONCE IART Last administered on 10/18/20at 15:45; Start 10/18/20 at 15:45; Stop 10/18/20 at 16:02; Status DC Midazolam HCl (Versed) 4 mg 1X ONCE IV Last administered on 10/18/20at 13:14; Start 10/18/20 at 15:45; Stop 10/18/20 at 16:02; Status DC Fentanyl Citrate (Fentanyl 2ml Vial) 12.5 mcg 1X ONCE IV Last administered on 10/18/20at 13:14; Start 10/18/20 at 15:45; Stop 10/18/20 at 16:02; Status DC Iodixanol (Visipaque 320) 118 ml 1X ONCE IART Last administered on 10/18/20at 15:45; Start 10/18/20 at 15:45; Stop 10/18/20 at 16:02; Status DC Bivalirudin (Angiomax) 500 mg 1X ONCE IV Last administered on 10/18/20at 15:45; Start 10/18/20 at 15:45; Stop 10/18/20 at 16:02; Status DC Lidocaine HCl (Lidocaine 1% 20ml Vial) 20 ml 1X ONCE INJ Last administered on 10/18/20at 15:45; Start 10/18/20 at 15:45; Stop 10/18/20 at 16:02; Status DC Furosemide (Lasix) 40 mg 1X ONCE IVP Last administered on 10/18/20at 15:45; Start 10/18/20 at 15:45; Stop 10/18/20 at 16:03; Status DC Dopamine HCl/ Dextrose 250 ml @ 14.7 mls/hr CONT PRN IV SEE I/O RECORD Last administered on 10/18/20at 15:57; Start 10/18/20 at 15:45 Info (CONTRAST GIVEN -- Rx MONITORING) 1 each PRN DAILY PRN MC SEE COMMENTS; Start 10/18/20 at 16:00; Stop 10/20/20 at 15:59 Allergies Allergies: Coded Allergies: No Known Drug Allergies (Unverified , 10/18/20) ROS Cardiovascular: yes Chest Pain Gastrointestinal: Yes Nausea, Yes Abdominal Pain Physical Exam General: mild distress HEENT: Atraumatic Lungs: Other (Decreased breath sounds) Heart: Other (Sinus tachycardia) Abdomen: Normal bowel sounds Vitals VITALS Vital Signs Date Time Temp Pulse Resp B/P (MAP) Pulse Ox O2 Delivery O2 Flow Rate FiO2 10/18/20 13:18 Ventilator 10/18/20 13:15 88 10/18/20 12:35 116 110/74 (86) 6.0 10/18/20 11:47 20 10/18/20 11:10 98.0 98.0 Labs Labs Laboratory Tests Test 10/18/20 11:15 10/18/20 12:13 White Blood Count 24.8 x10^3/uL (4.0-11.0) Red Blood Count 5.68 x10^6/uL (4.30-5.70) Hemoglobin 16.1 g/dL (13.0-17.5) Hematocrit 47.0 % (39.0-53.0) Mean Corpuscular Volume 83 fL (79-100) Mean Corpuscular Hemoglobin 28 pg (25-35) Mean Corpuscular Hemoglobin Concent 34 g/dL (31-37) Red Cell Distribution Width 13.7 % (11.5-14.5) Platelet Count 240 x10^3/uL (140-400) Neutrophils (%) (Auto) 91 % (31-73) Lymphocytes (%) (Auto) 3 % (24-48) Monocytes (%) (Auto) 6 % (0-9) Eosinophils (%) (Auto) 0 % (0-3) Basophils (%) (Auto) 0 % (0-3) Neutrophils # (Auto) 22.7 x10^3/uL (1.8-7.7) Lymphocytes # (Auto) 0.7 x10^3/uL (1.0-4.8) Monocytes # (Auto) 1.4 x10^3/uL (0.0-1.1) Eosinophils # (Auto) 0.0 x10^3/uL (0.0-0.7) Basophils # (Auto) 0.1 x10^3/uL (0.0-0.2) Segmented Neutrophils % 92 % (35-66) Band Neutrophils % 2 % (0-9) Lymphocytes % 1 % (24-48) Monocytes % 5 % (0-10) Platelet Estimate Adequate (ADEQUATE) Prothrombin Time 13.8 SEC (11.7-14.0) Prothromb Time International Ratio 1.1 (0.8-1.1) Activated Partial Thromboplast Time 29 SEC (24-38) Sodium Level 131 mmol/L (136-145) Potassium Level 4.5 mmol/L (3.5-5.1) Chloride Level 95 mmol/L (98-107) Carbon Dioxide Level 23 mmol/L (21-32) Anion Gap 13 (6-14) Blood Urea Nitrogen 21 mg/dL (8-26) Creatinine 1.6 mg/dL (0.7-1.3) Estimated GFR (Cockcroft-Gault) 45.6 BUN/Creatinine Ratio 13 (6-20) Glucose Level 282 mg/dL (70-99) Calcium Level 9.1 mg/dL (8.5-10.1) Magnesium Level 1.8 mg/dL (1.8-2.4) Total Bilirubin 1.3 mg/dL (0.2-1.0) Aspartate Amino Transf (AST/SGOT) 165 U/L (15-37) Alanine Aminotransferase (ALT/SGPT) 55 U/L (16-63) Alkaline Phosphatase 77 U/L (46-116) Troponin I Quantitative 10.436 ng/mL (0.000-0.055) RA-Snr-X-Type Natriuretic Peptide 5767 pg/mL (0-124) Total Protein 7.4 g/dL (6.4-8.2) Albumin 3.8 g/dL (3.4-5.0) Albumin/Globulin Ratio 1.1 (1.0-1.7) Lipase 48 U/L (73-393) Thyroid Stimulating Hormone (TSH) 1.026 uIU/mL (0.358-3.74) Ethyl Alcohol Level < 10 mg/dL (0-10) SARS-CoV-2 Antigen (Rapid) Negative (NEGATIVE) Laboratory Tests Test 10/18/20 11:15 10/18/20 12:13 White Blood Count 24.8 x10^3/uL (4.0-11.0) Red Blood Count 5.68 x10^6/uL (4.30-5.70) Hemoglobin 16.1 g/dL (13.0-17.5) Hematocrit 47.0 % (39.0-53.0) Mean Corpuscular Volume 83 fL (79-100) Mean Corpuscular Hemoglobin 28 pg (25-35) Mean Corpuscular Hemoglobin Concent 34 g/dL (31-37) Red Cell Distribution Width 13.7 % (11.5-14.5) Platelet Count 240 x10^3/uL (140-400) Neutrophils (%) (Auto) 91 % (31-73) Lymphocytes (%) (Auto) 3 % (24-48) Monocytes (%) (Auto) 6 % (0-9) Eosinophils (%) (Auto) 0 % (0-3) Basophils (%) (Auto) 0 % (0-3) Neutrophils # (Auto) 22.7 x10^3/uL (1.8-7.7) Lymphocytes # (Auto) 0.7 x10^3/uL (1.0-4.8) Monocytes # (Auto) 1.4 x10^3/uL (0.0-1.1) Eosinophils # (Auto) 0.0 x10^3/uL (0.0-0.7) Basophils # (Auto) 0.1 x10^3/uL (0.0-0.2) Segmented Neutrophils % 92 % (35-66) Band Neutrophils % 2 % (0-9) Lymphocytes % 1 % (24-48) Monocytes % 5 % (0-10) Platelet Estimate Adequate (ADEQUATE) Prothrombin Time 13.8 SEC (11.7-14.0) Prothromb Time International Ratio 1.1 (0.8-1.1) Activated Partial Thromboplast Time 29 SEC (24-38) Sodium Level 131 mmol/L (136-145) Potassium Level 4.5 mmol/L (3.5-5.1) Chloride Level 95 mmol/L (98-107) Carbon Dioxide Level 23 mmol/L (21-32) Anion Gap 13 (6-14) Blood Urea Nitrogen 21 mg/dL (8-26) Creatinine 1.6 mg/dL (0.7-1.3) Estimated GFR (Cockcroft-Gault) 45.6 BUN/Creatinine Ratio 13 (6-20) Glucose Level 282 mg/dL (70-99) Calcium Level 9.1 mg/dL (8.5-10.1) Magnesium Level 1.8 mg/dL (1.8-2.4) Total Bilirubin 1.3 mg/dL (0.2-1.0) Aspartate Amino Transf (AST/SGOT) 165 U/L (15-37) Alanine Aminotransferase (ALT/SGPT) 55 U/L (16-63) Alkaline Phosphatase 77 U/L (46-116) Troponin I Quantitative 10.436 ng/mL (0.000-0.055) PS-Lxz-N-Type Natriuretic Peptide 5767 pg/mL (0-124) Total Protein 7.4 g/dL (6.4-8.2) Albumin 3.8 g/dL (3.4-5.0) Albumin/Globulin Ratio 1.1 (1.0-1.7) Lipase 48 U/L (73-393) Thyroid Stimulating Hormone (TSH) 1.026 uIU/mL (0.358-3.74) Ethyl Alcohol Level < 10 mg/dL (0-10) SARS-CoV-2 Antigen (Rapid) Negative (NEGATIVE) Images Images Chest x-ray with diffuse central and lower lobe infiltrates. Small pleural effusions. Assessment/Plan Assessment/Plan 1. Patient's history is consistent with a late presentation of an infarction. Patient has ST elevation anteriorly as well as some troponin of 10.4. In this setting I believe emergency cardiac catheterization is indicated. Risks and benefits were discussed with the patient. He has agreed to proceed with catheterization and possible intervention. 2. Pulmonary infiltrates and pleural effusions as above. Persistent episodes of recent cough. This is probably secondary to heart failure but his white count is also elevated. We will continue supportive treatment. Rapid Covid test has been obtained. However in the setting of his emergent situation we will proceed with cardiac catheterization. 3. Elevated white count as above. Initial coverage with antibiotics pending Covid testing. 4. History of diabetes. Will monitor lab and adjust medications as needed. Thank you for allowing us to participate in the care of your patient. VERONA BALDWIN MD Oct 18, 2020 19:53
[2020-10-18] MEDS ORDERED: INSULIN GLARGINE SYRINGE. SQ SCH (21:00)
--- NOTE | 2020-10-19 01:38 | EKG ---
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
== END 2020-10-18 15:08 | DRG 248 ==
LOC: ER 10:40 → 1 WEST ICU 12:38
PROVIDERS: ADMIT Family Medicine; ATTEND Family Medicine
PROC: 02703DZ Dilation of Coronary Artery, One Artery with Intraluminal Device, Percutaneous Approach (ICD-10-PCS; principal; 2020-10-18)
PROC: B2111ZZ Fluoroscopy of Multiple Coronary Arteries using Low Osmolar Contrast (ICD-10-PCS; 2020-10-18)
PROC: 4A023N7 Measurement of Cardiac Sampling and Pressure, Left Heart, Percutaneous Approach (ICD-10-PCS; 2020-10-18)
PROC: 5A12012 Performance of Cardiac Output, Single, Manual (ICD-10-PCS; 2020-10-18)
PROC: 5A2204Z Restoration of Cardiac Rhythm, Single (ICD-10-PCS; 2020-10-18)
PROC: 5A09357 Assistance with Respiratory Ventilation, Less than 24 Consecutive Hours, Continuous Positive Airway Pressure (ICD-10-PCS; 2020-10-18)
PROC: 5A1935Z Respiratory Ventilation, Less than 24 Consecutive Hours (ICD-10-PCS; 2020-10-18)
PROC: 0BH17EZ Insertion of Endotracheal Airway into Trachea, Via Natural or Artificial Opening (ICD-10-PCS; 2020-10-18)
DX: I21.3 ST elevation (STEMI) myocardial infarction of unspecified site (principal); J96.01 Acute respiratory failure with hypoxia; N17.9 Acute kidney failure, unspecified; J90 Pleural effusion, not elsewhere classified; D72.829 Elevated white blood cell count, unspecified; E11.65 Type 2 diabetes mellitus with hyperglycemia; Z83.3 Family history of diabetes mellitus; R91.8 Other nonspecific abnormal finding of lung field; I46.9 Cardiac arrest, cause unspecified; Z20.822 Contact with and (suspected) exposure to COVID-19
CPT/HCPCS: 36415; 71045; 80053; 83690; 83735; 83880; 84443; 84484; 85007; 85025; 85610; 85730; 87426; 92941; 93005; 93454; 94002; 96361; 96374; 96375; 99152; 99153; C1725; C1769; C1887; C1892; G0480; J0171; J0330; J0461; J0583; J1265; J1644; J1815; J1940; J2250; J2270; J2405; J3010; J3490; J7030; J7060; Q9967; U0003; 99285-25; C1874; G0378